=== PATIENT | male | born 1995 | race Caucasian/White ===

== ENCOUNTER 2017-03-17 13:21 | Emergency (ER) | payer OTHER ==
--- NOTE | 2017-03-17 13:43 | EDM.PDOC ---
ED HPI GENERAL MEDICAL PROBLEM - General Chief Complaint: Laceration Stated Complaint: left thumb lac Time Seen by Provider: 03/17/17 13:34 Source of Information: Reports: Patient History Limitations: Reports: No Limitations - History of Present Illness INITIAL COMMENTS - FREE TEXT/NARRATIVE: Patient working at the [email or web address]. He was attempting to open a glass jar when it broke and cut his finger. He has no other complaints or injuries. Full range of motion to left thumb. Onset: Today Onset Date: 03/17/17 Onset Time: 13:00 Location: Reports: Upper Extremity, Left (thumb, left) Severity: Mild Improves with: Reports: None Worsens with: Reports: None Associated Symptoms: Reports: No Other Symptoms - Related Data Allergies Allergy/AdvReac Type Severity Reaction Status Date / Time No Known Allergies Allergy Verified 03/17/17 13:35 Home Meds: Home Meds . [No Known Home Meds] 03/17/17 [History] ED ROS GENERAL - Review of Systems Review Of Systems: ROS reveals no pertinent complaints other than HPI. ED EXAM, SKIN/RASH Exam: See Below Exam Limited By: No Limitations General Appearance: Alert, WD/WN, No Apparent Distress Eye Exam: Bilateral Eye: EOMI, PERRL Extremities: Normal Inspection, Normal Range of Motion, Non-Tender Neurological: Alert, Oriented, CN II-XII Intact Psychiatric: Normal Affect, Normal Mood Skin: Warm, Dry, Intact, Wound/Incision (left thumb, linear lac. 1.5 cm) Location, Skin: Upper Extremity, Right (left thumb) Characteristics: Linear ED SKIN PROCEDURES - Laceration/Wound Repair Left Medial Proximal Ventral Finger Lac/Wound length In cm: 1.5 (injury to left proximal thumb near PIP joint) Distal NVT: Neuro & Vascular Intact, No Tendon Injury Anesthetic Type: Local Local Anesthesia - Lidocaine (Xylocaine): 1% Plain Local Anesthetic Volume: 2cc Skin Prep: Chlorhexidine (Hibiciens) Exploration/Debridement/Repair: Wound Explored, in a Bloodless Field, Explored to Base, No Foreign Material Found Closed with: Sutures Suture Size: 4-0 Suture Type: Nylon, Interrupted Sterile Dressing Applied: Nurse Tetanus Status Addressed: Yes Complications: No Course - Re-Assessments/Exams Free Text/Narrative Re-Assessment/Exam: 03/17/17 14:07 Patient became light headed during suturing. He was positioned into bed lying down rather than sitting, and this did resolve. Departure - Departure Time of Disposition: 14:17 Disposition: Home, Self-Care 01 Condition: Good Clinical Impression: Laceration of left thumb - Discharge Information Instructions: Laceration Care, Adult, [id number], Wound Infection, Easy-to- Read Forms: ED Department Discharge Additional Instructions: Have the sutures removed in 7-10 days Keep your incision clean and dry. You may shower and wash with soap and water then dab dry. Do not submerge your laceration in any water; dish water, hot tub, swimming pool , any natural bodies of water as this can introduce bacteria Watch for signs of infection which can include fever greater than 101.5F, increased swelling, heat, redness, red streak running away from the site, chills. Please call us with any questions or concerns. - Assessment/Plan Assessment:: left thumb laceration Plan: Have the sutures removed in 7-10 days Keep your incision clean and dry. You may shower and wash with soap and water then dab dry. Do not submerge your laceration in any water; dish water, hot tub, swimming pool , any natural bodies of water as this can introduce bacteria Watch for signs of infection which can include fever greater than 101.5F, increased swelling, heat, redness, red streak running away from the site, chills. Please call us with any questions or concerns.
[2017-03-17 13:48] VITALS: BP 125/85
== END 2017-03-17 14:15 | disposition home or self-care (01) ==
LOC: VM.ED 13:21
DX: S61.012A Laceration without foreign body of left thumb without damage to nail, initial encounter (principal); W25.XXXA Contact with sharp glass, initial encounter
CPT/HCPCS: 12001; 99283